=== PATIENT | female | born 1935 | race Caucasian/White ===

== ENCOUNTER 2016-11-03 11:45 | Inpatient (IN) | payer OTHER ==
[~2016-11-03] VITALS: Ht 162.6 cm; Wt 79.5 kg
[2016-11-03 12:29] LABS: ABSOLUTE BASOPHIL COUNT 0 /CUMM (0.0-0.2); ABSOLUTE EOSINOPHIL COUNT 0.2 /CUMM (0.0-0.7); ABSOLUTE LYMPH COUNT 1.9 /CUMM (1.2-3.4); ABSOLUTE MONOCYTE COUNT 0.5 /CUMM (0.10-0.60); BASOPHIL % 0.3 % (0.0-2.0); EOSINOPHIL % 2.2 % (0-5); GRANULOCYTE % 65.4 % (42.2-75.2); HEMATOCRIT 34.9 % (37-47); MEAN CORPUSCULAR HGB CONC 34.1 G/DL (33.0-37.0); MEAN CORPUSCULAR VOLUME 93.8 FL (81.0-99.0); MEAN PLATELET VOLUME 7.1 FL (7.4-10.4); PLATELET COUNT 231 /CUMM (130-400); RBC DISTRIBUTION WIDTH 12.5 % (11.5-14.5); RED BLOOD CELL CT 3.72 /CUMM (4.20-5.40); WHITE BLOOD CELL COUNT 7.7 /CUMM (4.8-10.8)
--- NOTE | 2016-11-03 13:15 | ED NEURO DEFICIT/STROKE ---
History of Present Illness General Chief Complaint: Neuro Symptoms/ Deficit Stated Complaint: LFT SIDED WEAKNESS SINCE YESTERDAY MORNING/FALL Source: patient Exam Limitations: no limitations Vital Signs & Intake/Output Vital Signs & Intake/Output ED Intake and Output 11/06 0000 11/05 1200 Intake Total 840 Output Total 425 Balance 415 Intake, IV 600 Intake, Oral 240 Output, Urine 425 Allergies Coded Allergies: No Known Allergies (11/03/16) Reconcile Medications Aspirin (Ecotrin*) 81 MG TABLET.DR 1 TAB PO DAILY CVA Atenolol/Chlorthalidone (Atenolol-Chlorthalidone 100-25) 100 MG-25 MG TABLET 1 TAB PO DAILY HEART (Reported) Atorvastatin Calcium 80 MG TABLET 1 TAB PO DAILY HY[PERLIPIDEMIA Clopidogrel Bisulfate (Plavix) 75 MG TABLET 1 TAB PO DAILY CVA Furosemide 40 MG TABLET 1 TAB PO DAILY WATER RETENTION (Reported) Glipizide (Glipizide ER) 2.5 MG TAB.ER.24 1 TAB PO DAILY DIABETES (Reported) Ropinirole HCl 1 MG TABLET 1 TAB PO BID RESTLESS LEGS (Reported) Triage Note: PT TO ED WITH LT SIDED WEAKNESS. STATES SHE STARTED TO TO GET THE WEAKNESS IN THE MORNING. LATER IN THE DAY SHE WAS SITTING IN A CHAIR GOT UP AND FELT DIZZY AND FELL TO THE GROUND. DENIES ANY HEAD STRIKE OR LOC. STATES THIS MORNING STARTING TO FEEL WEAKNESS TO HER RIGHT HAND. DENIES ANY LUIS. DENIES ANY CP/SOB. Triage Nurses Notes Reviewed? yes Onset: Abrupt Duration: hour(s):, constant, continues in ED HPI: Patient presents for evaluation of a possible stroke. She states that beginning yesterday she began having trouble typing and experienced clumsiness and weakness of the left hand. She states she also fell yesterday at about 12 noon for an unclear reason. She was evaluated by her primary care doctor today and was sent to the emergency department for evaluation of a possible stroke. I obtained additional information from Katelynn Amaya MD prior to this patient's arrival and he felt the patient was showing left upper extremity weakness on exam. Patient otherwise denies associated palpitations, acute visual changes, or slurred speech. There is a question whether or not she has showed an expressive aphasia, sometimes using the wrong word. Past History Travel History Traveled to [place] past 21 day No Medical History Any Pertinent Medical History? see below for history Cardiovascular: hypertension Endocrine: diabetes Surgical History Surgical History: non-contributory Psychosocial History What is your primary language Slovak Tobacco Use: Never used Family History Hx Contributory? No Review of Systems Review of Systems Constitutional: Reports: no symptoms. EENTM: Reports: no symptoms. Respiratory: Reports: no symptoms. Cardiovascular: Reports: no symptoms. GI: Reports: no symptoms. Genitourinary: Reports: no symptoms. Musculoskeletal: Reports: no symptoms. Skin: Reports: no symptoms. Neurological/Psychological: Reports: see HPI. Hematologic/Endocrine: Reports: no symptoms. Immunologic/Allergic: Reports: no symptoms. All Other Systems: Reviewed and Negative Physical Exam Physical Exam General Appearance: SEE BELOW Cranial Nerves: SEE BELOW Comments: Gen.: Well-nourished, well-developed, no acute respiratory distress. Head: Normocephalic, atraumatic. Eyes: Normal inspection bilaterally Ears: Normal inspection bilaterally Nose: Normal inspection Throat/mouth : Moist mucosa Neck: Supple, full range of motion, no goiter Heart: Regular rate and rhythm, no murmurs rubs or gallops Lungs: Clear to auscultation bilaterally with normal air entry Chest: Nontender Back: Normal range of motion Abdomen: Soft, nontender, nondistended, normal bowel sounds Extremities: Normal range of motion grossly, equal radial pulses, no cyanosis clubbing or edema, normal muscle strength to upper and lower extremities, dysmetria of the left upper extremity with finger to nose testing, difficulty with rapid alternating movements of the left hand. Plantar reflexes negative bilaterally. Neurologic: Cranial nerves 2 through 12, speech is clear, no apparent expressive aphasia Skin: warm and dry Psychiatric: Calm, cooperative, no apparent delusions or hallucinations Core Measures CVA/TIA Diagnosis: Yes Severe Sepsis Present: No Septic Shock Present: No Progress Differential Diagnosis: stroke, tia Plan of Care: Orders Procedure Date/time Status Admit to inpatient 11/03 1546 Active Add-on Test (ER Only) 11/03 1315 Active PROTHROMBIN TIME 11/03 1218 Complete TROPONIN LEVEL 11/03 1208 Complete COMPREHENSIVE METABOLIC PANEL 11/03 1208 Complete CBC WITHOUT DIFFERENTIAL 11/03 1208 Complete EKG 11/03 1152 Active Laboratory Tests 11/03/16 1218: Anion Gap 12, Estimated GFR 27 L, BUN/Creatinine Ratio 24.4, Glucose 116 H, Calcium 9.9, Total Bilirubin 0.6, AST 22, ALT 32, Alkaline Phosphatase 57, Troponin I < 0.01, Total Protein 6.9, Albumin 4.6, Globulin 2.3, Albumin/ Globulin Ratio 2.0, PT 10.1, INR 0.96, CBC w Diff NO MAN DIFF REQ, RBC 3.72 L, MCV 93.8, MCH 32.0 H, RDW 12.5, MPV 7.1 L, Gran % 65.4, Lymphocytes % 25.2, Monocytes % 6.9, Eosinophils % 2.2, Basophils % 0.3, Absolute Granulocytes 5.0, Absolute Lymphocytes 1.9, Absolute Monocytes 0.5, Absolute Eosinophils 0.2, Absolute Basophils 0, PUBS MCHC 34.1 Initial ED EKG: NSR, no ST T wave changes Comments: 11/03/2016 3:15:15 PM per neuro radiologist, Dr. Molina, multiple acute infarcts left mca and watershed. 11/03/2016 4:25:11 PM the patient has swallowed a bedside swallowing test and was able to swallow water and an aspirin without coughing or other complication. MOD notified. Departure Departure Disposition: STILL A PATIENT Condition: Stable Clinical Impression Primary Impression: CVA (cerebral vascular accident) Qualifiers: CVA mechanism: unspecified Qualified Code: I63.9 - Cerebral infarction, unspecified Referrals: MIKAEL COLMENARES,KATELYNN Mcknight (PCP/Family) Departure Forms: Customer Survey General Discharge Information Prescriptions: Current Visit Scripts Aspirin (Ecotrin*) 1 TAB PO DAILY #30 TAB Atorvastatin Calcium 1 TAB PO DAILY #30 TAB Clopidogrel Bisulfate (Plavix) 1 TAB PO DAILY #30 TAB Admission Note Spoke With: VERO LAGUNA MD Documentation of Exam: Documentation of any treatments & extenuating circumstances including Concerns Regarding Discharge (functional status, medication knowledge or non-compliance, living conditions, etc.) that warrant an admission rather than observation: Patient presents with history and exam findings consistent with a CVA. Patient has multiple acute CVAs on MRI scan. I feel the patient now requires hospitalization for an expedient evaluation of reversible causes of her CVA including carotid disease and cardioembolic phenomenon. It addition patient should be evaluated by neurology and medications adjusted. Physical therapy should also be considered given the stability of the left upper extremity. I feel the patient will require a multiple day hospitalization.
[2016-11-03 13:32] LABS: PT 10.1 SEC (9.4-12.5)
--- NOTE | 2016-11-03 15:20 | MRI REPORT ---
EXAMINATION: MR BRAIN WITHOUT CONTRAST CLINICAL INFORMATION: Left upper extremities weakness. Stroke workup. COMPARISON: None TECHNIQUE: MRI of the brain without contrast was obtained using routine sequences. FINDINGS: There are multifocal areas of restricted diffusion following a border zone distribution primarily in the MCA vascular territory at the treadwell-white matter junction in the right frontoparietal lobes extending from the vertex inferiorly to the mid to lower convexity. No mass effect or midline shift is seen. There is no hemorrhagic conversion of infarcts. The ventricles are normal in size. No extra-axial fluid collections are seen. Mild chronic white matter microangiopathic changes are noted. The brainstem and cerebellum appear normal. The major intracranial flow voids at the level of the [place] are preserved. The craniovertebral junction and marrow signal are normal. Mild spondylitic changes are noted with mild anterior subluxations at C3-C4 and C4-C5. IMPRESSION: Multifocal acute infarcts primarily in the right MCA vascular territory and also following a watershed distribution in the frontoparietal lobes. No hemorrhagic conversion, significant mass effect or midline shift. Imaging findings discussed with Dr. Alas at 3:15 PM on 11/03/2016.
[2016-11-03] MEDS ORDERED: ROPINIROLE HCL1 MG PO (15:31)
[2016-11-03] MEDS ORDERED: FUROSEMIDE40 M1 PO (15:32)
[2016-11-03] MEDS ORDERED: LISINOPRIL10 M1 PO (15:32)
[2016-11-03] MEDS ORDERED: ATENOLOL-CHLOR1 EACH PO (15:33)
[2016-11-03] MEDS ORDERED: GLIPIZIDE ER2.5 M1 PO (15:33)
[2016-11-03] MEDS ORDERED: ATORVASTATIN CA20 M1 PO (15:33)
[2016-11-03] MEDS ORDERED: PREDNISOLONE ACE5 ML OPH (15:33)
--- NOTE | 2016-11-03 16:14 | History & Physical ---
VICK PALOMARES MD 11/03/16 1613: General Information and HPI MD Statement: I have seen and personally examined VISHNU CALDERÓN and documented this H&P. The patient is a 81 year old F who presented with a patient stated chief complaint of [clumsiness, left arm weakness]. Source of Information: patient, family Exam Limitations: no limitations History of Present Illness: A pleasant 81 YO F with a PMH hypertension, hyperlipidemia, diabetes, CKD stage 4 and restless leg syndrome who presents with left hand clumsiness and weakness and mild confusion x 1 day duration. Patient says she woke up yesterday morning feeling unwell and she noticed she was left arm was weaker than usual, she was unable to turn the faucet in the kitchen and when she went to use her computer she fumbled for the keys and could not seem to be able to be able to type in her password which is something she usually does by rote memory. She then fell when she tried to stand up from a chair but denies losing consciousness or hitting her head when she fell. SHe has no hx of prior stroke, she does not take a daily aspirin and does not have a hx of heart disease. She denies syncope, blurry vision, abnormal smells, double vision, headache, palpitation or chest pain. She denies lower extremity weakness, facial droop or dysphagia but her says her speech was slurred though she did not notice this herself. She did not seek medical attention but continued through her day as usual and went to bed with the symptoms. She woke up this morning not feeling any better, so she decided to go to her PCP's office who examined her and sent her over to the ED to be evaluated for a possible stroke. She is independent of her ADLs at baseline and is active. She recently had cataract surgey in her Rt eye. Allergies/Medications Allergies: Coded Allergies: No Known Allergies (11/03/16) Home Med list Atenolol/Chlorthalidone (Atenolol-Chlorthalidone 100-25) 100 MG-25 MG TABLET 1 TAB PO DAILY HEART (Reported) Atorvastatin Calcium 20 MG TABLET 1 TAB PO DAILY CHOLESTEROL (Reported) Furosemide 40 MG TABLET 1 TAB PO DAILY WATER RETENTION (Reported) Glipizide (Glipizide ER) 2.5 MG TAB.ER.24 1 TAB PO DAILY DIABETES (Reported) Lisinopril 10 MG TABLET 1 TAB PO DAILY HEART (Reported) Ropinirole HCl 1 MG TABLET 1 TAB PO BID RESTLESS LEGS (Reported) Compliance With Home Meds: GOOD Past History Travel History Traveled to [place] past 21 day No Medical History Neurological: NONE EENT: NONE Cardiovascular: hypertension Respiratory: NONE Gastrointestinal: NONE Hepatic: NONE Renal: NONE Musculoskeletal: NONE Psychiatric: NONE Endocrine: diabetes Surgical History Surgical History: non-contributory Past Family/Social History Family History Relations & Conditions if any SON FH: hypertension MOTHER FH: Alzheimers disease FATHER FH: diabetes mellitus SISTER FH: Alzheimers disease Psychosocial History Where do you live? Home Who Do You Live With? spouse Primary Language: Mauritanian Smoking Status: Never Smoked ETOH Use: denies use Illicit Drug Use: denies illicit drug use Functional Ability ADLs Independent: dressing, eating, toileting, bathing. Ambulation: independent IADLs Independent: shopping, housework, finances, food prep, telephone, transportation , medication admin. Review of Systems Review of Systems Constitutional: Reports: no symptoms. Cardiovascular: Reports: see HPI. Denies: chest pain, edema, palpitations. Respiratory: Denies: cough, short of breath. GI: Denies: abdominal pain, nausea, vomiting. Genitourinary: Denies: pain. Skin: Denies: jaundice, lesions. Exam & Diagnostic Data Last 24 Hrs of Vital Signs/I&O Vital Signs Date Time Temp Pulse Resp B/P B/P Pulse O2 O2 Flow FiO2 Mean Ox Delivery Rate 11/03 1649 97.8 54 18 115/56 99 Room Air 11/03 1449 96.6 51 15 126/56 99 Room Air Room Air 11/03 1246 Room Air Room Air 11/03 1151 97.0 96 16 124/68 98 Room Air Intake & Output 11/03 1600 11/03 0800 11/03 0000 Intake Total 0 Output Total 400 Balance -400 Intake, Oral 0 Output, Urine 400 Patient 175 lb Weight Weight Reported by Patient Measurement Method Physical Exam General Appearance Alert, Oriented X3, Cooperative, No Acute Distress Skin No Significant Lesion HEENT PERRLA, EOMI, Mucous Membr. moist/pink, no appreciable facial droop, slurring of speech or tongue deviation Neck Supple, No JVD, +2 Carotid Pulse wo Bruit Cardiovascular Regular Rate, Normal S1, Normal S2, No Murmurs Lungs Clear to Auscultation, Normal Air Movement Abdomen Normal Bowel Sounds, Soft, No Tenderness Neurological Strength in RUE-5/5, LUE-4/5, strong registered pharmacist bilaterally, mild drift of LUE Strength in RLE-5/5, RLE-5/5, intact sensation Extremities No Edema, Normal Pulses Vascular Normal Pulses Last 24 Hrs of Labs/Issa: Laboratory Tests 11/03/16 1218: Anion Gap 12, Estimated GFR 27 L, BUN/Creatinine Ratio 24.4, Glucose 116 H, Calcium 9.9, Total Bilirubin 0.6, AST 22, ALT 32, Alkaline Phosphatase 57, Troponin I < 0.01, Total Protein 6.9, Albumin 4.6, Globulin 2.3, Albumin/ Globulin Ratio 2.0, PT 10.1, INR 0.96, CBC w Diff NO MAN DIFF REQ, RBC 3.72 L, MCV 93.8, MCH 32.0 H, RDW 12.5, MPV 7.1 L, Gran % 65.4, Lymphocytes % 25.2, Monocytes % 6.9, Eosinophils % 2.2, Basophils % 0.3, Absolute Granulocytes 5.0, Absolute Lymphocytes 1.9, Absolute Monocytes 0.5, Absolute Eosinophils 0.2, Absolute Basophils 0, PUBS MCHC 34.1 Diagnostic Data EKG Results NSR, rate 56 Other Results Head MRI: Multifocal acute infarcts primarily in the right MCA vascular territory and also following a watershed distribution in the frontoparietal lobes. No hemorrhagic conversion, significant mass effect or midline shift. Assessment/Plan Assessment: A pleasant 81 YO F with a PMH of hypertension, hyperlipidemia, diabetes, CKD stage 4 and restless leg syndrome who presents with left hand clumsiness and weakness and mild confusion x 1 day duration. She is out of window for tPA. -Multifocal acute infarcts primarily in the right MCA vascular territory and also following a watershed distribution in the frontoparietal lobes. -EKG-NSR; rate 56 -Patient passed a bedside swallow eval Assessment 1. Acute right sided thromboembolic stroke 2. HTN 3. T2DM 4. HLD 5. CKD stage 4-Cr seems to be at baseline Plan Admit to tele for monitoring to r/o arrythmias PO aspirin 325mg stat; then 81mg daily thereafter Atorvastatin 80mg daily Resume her home dose of lisinopril 20mg daily Hold Atenolol; HR in the 50s Check Hb A1c Check lipid profile Resume Ropinirole, lasix Neuro Consult-spoke with Dr. Magaña over the phone and he wants and ECHO and carotid US ordered; he will see patient in am. CBC/BEP in am Diabetic diet FC SC heparin for DVT PPX As Ranked By This Provider Problem List: 1. CVA (cerebral vascular accident) Qualifiers CVA mechanism: unspecified Qualified Code: I63.9 - Cerebral infarction, unspecified Core Measures/Miscellaneous Acute Coronary Syndrome ACS Diagnosis: No Cerebrovascular Accident CVA/TIA Diagnosis: Yes NIH Stroke Scale: Total 1 Date Last Known Well: 11/02/16 Time Last Known Well: 0800 Neurological S/S of CVA: Left Hemiparesis, Slurred Speech Symptom Start Date: 11/02/16 Symptom Start Time: 0800 Reason tPA not ordered Medical Contraindication Bedside Swallow Eval Done: Yes Result of Evaluation: Pass Days in Hospital: 0 Antithrombotic: Yes AFIB: No Aflutter: No Anticoagulant: Yes Evidence of Atherosclerosis: Yes LDL Assessed Within 24 Hours: Yes Currently on Statin: Yes Rehab Needs Assessed: Medical Eval for Rehab PT Consult Ordered: Yes Congestive Heart Failure CHF Diagnosis: No VTE (View Protocol) VTE Risk Factors: Acute medical illness, Age > 40 [facility] d/t: No contraindications No VTE Pharm Prophylaxis d/t: No contraindications VTE Diagnosis: No VTE Type: NONE VTE Confirmed by (Test): NONE Sepsis (View Protocol) Severe Sepsis Present: No Septic Shock Septic Shock Present: No Miscellaneous Documentation Attending Case Discussed With: VERO LAGUNA MD Primary Care Physician: KATELYNN YOUSSEF MD Patient sees these Specialists none Level of Patient Care: Telemetry Consults Needed: Consulting Specialty: Neurology Resident Review Statement Resident Statement: examined this patient Other Findings: See HPI VERO LAGUNA 11/03/16 1613: Attending Review Statement Attending Statement Attending MD Statement: examined this patient, discuss w/resident/PA/JAIL GUARD, agreed w/resident/PA/JAIL GUARD, discussed with family, reviewed EMR data (avail), discussed with nursing, discussed with case mgmt, reviewed images, amended to note Attending Assessment/Plan: 81 o/f with PMH of hypertension, DM, restless legs syndromw comes with Left sided weakness since yesterday morning out of tpa window, also had fall. ASSESSMENT 1. left sided weakness 2. Acute stroke with multiple infracts 3. hypertension controlled 4. DM 5. restless leg syndrome PLAN admit to telemetry monitoring Neuro consult, NPO , asa , statin, consult speech/swallow, pt/ot, hba1c, lipid profile. RISS and titrate insulin as needed, resume home meds gi/dvt prophyalxis full code. plan of care d/wed patient bedside in ER. tts>37 min.
[2016-11-03 22:22] VITALS: BP 130/60
--- NOTE | 2016-11-04 07:11 | PN- Housestaff ---
See Addendum Subjective Follow-up For: 1. Acute right sided thromboembolic stroke 2. HTN 3. T2DM 4. HLD 5. CKD stage 4-Cr seems to be at baseline Complaints: no complaints Tele-Events Since Last Visit: Normal sinus rhythm/sinus bradycardia, 50 to 60s; low 49 Subjective: Patient feels a lot better compared to yesterday, she feels her strength in her left hand is returning. She denies dysphagia, blurry vision, slurred speech, or weakness of any other part of her body. Review of Systems Constitutional: Reports: no symptoms. Objective Last 24 Hrs of Vital Signs/I&O Vital Signs Date Time Temp Pulse Resp B/P B/P Pulse O2 O2 Flow FiO2 Mean Ox Delivery Rate 11/04 0853 97.7 51 16 103/42 96 Room Air 11/03 2222 98.2 58 20 130/60 97 Room Air 11/03 1851 97.2 60 18 124/58 97 Room Air 11/03 1649 97.8 54 18 115/56 99 Room Air 11/03 1449 96.6 51 15 126/56 99 Room Air Room Air 11/03 1246 Room Air Room Air 11/03 1151 97.0 96 16 124/68 98 Room Air Intake & Output 11/04 1600 11/04 0800 11/04 0000 Intake Total 880 Output Total 425 Balance 455 Intake, IV 400 Intake, Oral 480 Output, Urine 425 Patient 175 lb Weight Weight Reported by Patient Measurement Method Physical Exam General Appearance: Alert, Oriented X3, Cooperative, No Acute Distress HEENT: PERRLA, EOMI, Mucous Membr. moist/pink Cardiovascular: Regular Rate, Normal S1, Normal S2 Lungs: Clear to Auscultation, Normal Air Movement Abdomen: Normal Bowel Sounds, Soft, No Tenderness Neurological: Strength 5/5 on LUE. [employer] in left slightly weaker than Rt, no facial droop, or slurred speech Extremities: No Edema, Normal Pulses Current Medications: Current Medications Sig/Kourtney Start time Last Medication Dose Route Stop Time Status Admin Acetaminophen 650 MG Q6P PRN 11/03 1730 AC PO Aspirin 81 MG DAILY 11/04 1000 AC PO Aspirin 81 MG Q1 NEEDED PRN 11/03 2200 DC 11/03 PO 2257 Aspirin 243 MG ONCE ONE 11/03 1745 CAN PO 11/03 1746 Aspirin 0 .STK-MED ONE 11/03 1552 DC PO Aspirin 81 MG ONCE ONE 11/03 1530 [place] 11/03 PO 11/03 1531 1551 Atorvastatin Calcium 80 MG 1700 11/03 1745 11/03 PO 2246 Dextrose/Sodium 1,000 ML .Q20H 11/03 1730 [place] 11/03 Chloride IV 1852 Furosemide 40 MG DAILY 11/04 1000 AC PO Insulin Aspart 0 TIDAC 11/04 1200 AC SC Insulin Human Regular 0 Q6 11/03 1800 DC SC Lisinopril 10 MG DAILY 11/04 1000 AC PO Melatonin 5 MG AT BEDTIME 11/04 2200 AC PO Ropinirole HCl 1 MG BID 11/03 2200 AC 11/03 PO 2246 Last 24 Hrs of Lab/Issa Results Last 24 Hrs of Labs/Mics: Laboratory Tests 11/04/16 0600: Anion Gap 13, Estimated GFR 23 L, BUN/Creatinine Ratio 23.8, CBC w Diff NO MAN DIFF REQ, RBC 3.68 L, MCV 94.7, MCH 32.1 H, RDW 12.8, MPV 7.7, Gran % 59.3, Lymphocytes % 30.2, Monocytes % 7.8, Eosinophils % 2.5, Basophils % 0.2, Absolute Granulocytes 4.6, Absolute Lymphocytes 2.4, Absolute Monocytes 0.6, Absolute Eosinophils 0.2, Absolute Basophils 0, PUBS MCHC 33.9 11/03/161999: Urine Color YEL, Urine Clarity CLEAR, Urine pH 6.0, Ur Specific [place] 1.010, Urine Protein NEG, Urine Ketones NEG, Urine Nitrite NEG, Urine Bilirubin NEG, Urine Urobilinogen 0.2, Ur Leukocyte Esterase NEG, Ur Microscopic EXAM NOT REQUIRED, Urine Hemoglobin NEG, Urine Glucose NEG 11/03/16 1811: Hemoglobin A1c Pending, Triglycerides 231 H, Cholesterol 170, LDL Cholesterol, Calc 76, HDL Cholesterol 48, Cholesterol/HDL Ratio 4 11/03/16 1218: Anion Gap 12, Estimated GFR 27 L, BUN/Creatinine Ratio 24.4, Glucose 116 H, Calcium 9.9, Total Bilirubin 0.6, AST 22, ALT 32, Alkaline Phosphatase 57, Troponin I < 0.01, Total Protein 6.9, Albumin 4.6, Globulin 2.3, Albumin/ Globulin Ratio 2.0, PT 10.1, INR 0.96, CBC w Diff NO MAN DIFF REQ, RBC 3.72 L, MCV 93.8, MCH 32.0 H, RDW 12.5, MPV 7.1 L, Gran % 65.4, Lymphocytes % 25.2, Monocytes % 6.9, Eosinophils % 2.2, Basophils % 0.3, Absolute Granulocytes 5.0, Absolute Lymphocytes 1.9, Absolute Monocytes 0.5, Absolute Eosinophils 0.2, Absolute Basophils 0, PUBS MCHC 34.1 Lines/Diet/Fluids Lines: peripheral lines Assessment/Plan Assessment: A pleasant 81 YO F with a PMH of hypertension, hyperlipidemia, diabetes, CKD stage 4 and restless leg syndrome who presents with left hand clumsiness and weakness and mild confusion x 1 day duration. She is out of window for tPA. -Multifocal acute infarcts primarily in the right MCA vascular territory and also following a watershed distribution in the frontoparietal lobes. -EKG-NSR; rate 56 -Patient passed a bedside swallow eval Assessment 1. Acute right sided thromboembolic stroke 2. HTN 3. T2DM 4. HLD 5. AMADEO on CKD stage 4- Plan Creatinine bumped up to 2.1 today; will give IV fluids and recheck BEP in a.m. Continue 81mg daily Continue Atorvastatin 80mg daily Continue lisinopril 20mg daily Hold Atenolol; HR in the 50s Follow Hb A1c, lipid profile Continue Ropinirole, lasix Follow-up Neuro note Follow-up ECHO and carotid US CBC/BEP in am Diabetic diet FC SC heparin for DVT PPX Problem List: 1. CVA (cerebral vascular accident) Pain Ratin Pain Location: n/a Pain Goal: n/a Pain Plan: n/a Tomorrow's Labs & Rationales: BEP for AMADEO on CKD Consulting Request: Consulting Specialty: Neurology
[2016-11-04 08:25] LABS: ABSOLUTE BASOPHIL COUNT 0 /CUMM (0.0-0.2); ABSOLUTE EOSINOPHIL COUNT 0.2 /CUMM (0.0-0.7); ABSOLUTE GRANULOCYTE CT 4.6 /CUMM (1.4-6.5); ABSOLUTE LYMPH COUNT 2.4 /CUMM (1.2-3.4); ABSOLUTE MONOCYTE COUNT 0.6 /CUMM (0.10-0.60); BASOPHIL % 0.2 % (0.0-2.0); EOSINOPHIL % 2.5 % (0-5); GRANULOCYTE % 59.3 % (42.2-75.2); HEMATOCRIT 34.9 % (37-47); MEAN CORPUSCULAR HGB 32.1 PG (27.0-31.0); MEAN CORPUSCULAR HGB CONC 33.9 G/DL (33.0-37.0); MEAN CORPUSCULAR VOLUME 94.7 FL (81.0-99.0); MEAN PLATELET VOLUME 7.7 FL (7.4-10.4); PLATELET COUNT 199 /CUMM (130-400); RBC DISTRIBUTION WIDTH 12.8 % (11.5-14.5); RED BLOOD CELL CT 3.68 /CUMM (4.20-5.40); WHITE BLOOD CELL COUNT 7.8 /CUMM (4.8-10.8)
[2016-11-04 08:53] VITALS: BP 103/42
--- NOTE | 2016-11-04 09:38 | ULTRASOUND REPORT ---
EXAMINATION: US DUPLEX CAROTID AND VERTEBRAL CLINICAL INFORMATION: Slurred speech and left-sided weakness. COMPARISON: None TECHNIQUE: Real-time ultrasound and Doppler techniques (integrating B-mode 2D vascular images, Doppler spectral analysis and color flow Doppler imaging) were utilized to interrogate the extracranial carotid and vertebral arteries bilaterally. The degree of stenosis determined by criteria similar to NASCET. FINDINGS: RIGHT VESSELS - There is antegrade flow within the carotid and vertebral arteries. Atherosclerotic plaque of the distal common carotid artery, carotid bulb and bifurcation produces irregular luminal narrowing. There is spectral broadening of the ICA waveform. Doppler derived peak systolic velocity measurements (cm/sec) were as follows: Distal CCA: 56 ICA: 184 (with end diastolic of 73) ECA: 97 Vertebral: 101 ICA/CCA ratio is 3.3 LEFT VESSELS - There is antegrade flow within the carotid and vertebral arteries. On the grayscale images, the calcified atherosclerotic plaque of the carotid bulb and bifurcation appears to produce high-grade stenosis of the proximal ICA. There is spectral broadening of the ICA waveform. Doppler derived peak systolic velocity measurements (cm/sec) were as follows: Distal CCA: 45 ICA: 445 (with end diastolic of 174) ECA: 116 Vertebral: 88 ICA/CCA ratio is 9.9 IMPRESSION: Atherosclerotic disease with elevated systolic velocities of the vertebral and carotid arteries. The grayscale and Doppler imaging findings suggest presence of stenosis in the range of 50-69% of the right ICA and stenosis of > 70% of the left ICA.
[2016-11-04 15:49] VITALS: BP 118/60
[2016-11-04 16:09] VITALS: BP 100/50
[2016-11-04 18:20] VITALS: BP 110/54
--- NOTE | 2016-11-04 18:27 | Cons- Cardiology ---
General Information and HPI Consulting Request Date of Consult: 11/04/16 Requested By: VERO LAGUNA MD History of Present Illness: Trinity is an 81 year old female with history of hypertension, dyslipidemia, diabetes and renal insufficiency. About 5 days ago this patient noted a non- descript feeling of ill-being. On , she discovered a lack of coordination while trying to turn a knob. She also was not able to hold herself up and had a fall without injury. In consideration of the above, this patient presented to her primary care physician the following day who sent her to the ER for further evaluation. At this time the patient feels much improved with almost no residual deficit. She denies any associated palpitations during this event or at any other time. There is no chest discomfort or lightheadedness. The patient does have exertional shortness of breath that is not appreciably different than her baseline. Workup included an MRI which has disclose multifocal acute infarcts primarily in the right MCA vascular territory with a watershed distribution in the frontoparietal lobes. There is no evidence of hemorrhagic conversion, significant mass effect or midline shift. A carotid ultrasound shows less than 70% stenosis on the right and a greater than 70% stenosis in the left internal carotid artery. Allergies/Medications Allergies: Coded Allergies: No Known Allergies (11/03/16) Home Med List: Atenolol/Chlorthalidone (Atenolol-Chlorthalidone 100-25) 100 MG-25 MG TABLET 1 TAB PO DAILY HEART (Reported) Atorvastatin Calcium 20 MG TABLET 1 TAB PO DAILY CHOLESTEROL (Reported) Furosemide 40 MG TABLET 1 TAB PO DAILY WATER RETENTION (Reported) Glipizide (Glipizide ER) 2.5 MG TAB.ER.24 1 TAB PO DAILY DIABETES (Reported) Lisinopril 10 MG TABLET 1 TAB PO DAILY HEART (Reported) Ropinirole HCl 1 MG TABLET 1 TAB PO BID RESTLESS LEGS (Reported) Review of Systems Review of Systems: A twelve point review of systems is unremarkable. Past History Travel History Traveled to [place] past 21 day No Medical History Blood Transfusion Hx: No Neurological: NONE EENT: NONE Cardiovascular: hypertension Respiratory: NONE Gastrointestinal: NONE Hepatic: NONE Renal: NONE Musculoskeletal: NONE Psychiatric: NONE Endocrine: diabetes Surgical History Surgical History: non-contributory Family History Relations & Conditions If Any: SON FH: hypertension MOTHER FH: Alzheimers disease FATHER FH: diabetes mellitus SISTER FH: Alzheimers disease Psychosocial History Where Do You Live? Home Who Do You Live With? spouse Services at Home: None Primary Language: Scottish Smoking Status: Never Smoked ETOH Use: denies use Illicit Drug Use: denies illicit drug use Functional Ability ADLs Independent: dressing, eating, toileting, bathing. Ambulation: independent IADLs Independent: shopping, housework, finances, food prep, telephone, transportation , medication admin. Exam & Diagnostic Data Vital Signs and I&O Vital Signs Date Time Temp Pulse Resp B/P B/P Pulse O2 O2 Flow FiO2 Mean Ox Delivery Rate 11/04 1820 64 110/54 11/04 1609 65 100/50 11/04 1549 98.1 64 20 118/60 95 11/04 0940 54 96/60 11/04 0853 97.7 51 16 103/42 96 Room Air 11/03 2222 98.2 58 20 130/60 97 Room Air 11/03 1851 97.2 60 18 124/58 97 Room Air Intake & Output 11/04 1600 11/04 0800 11/04 0000 11/03 1600 11/03 0800 11/03 0000 Intake Total 1175 880 0 Output Total 425 400 Balance 1175 455 -400 Intake, IV 375 400 Intake, Oral 800 480 0 Output, Urine 425 400 Patient 175 lb 175 lb Weight Weight Reported by Patient Reported by Patient Measurement Method Physical Exam: General: WD/ obese female in NAD; alert and oriented with some slowness to respond HEENT: NC/ AT, PERRL, EOMI Neck: no JVD, left carotic bruit, no bruit on the right Heart: RRR without murmur Lungs: clear bilaterally Abdomen: soft, obese, NT, +ve bowel sounds Extremities: no edema Neuro: muscle strength 5/5 throughout with impaired finger to nose on left Assessment/Plan Assessment/Plan * This patient has significant carotid disease bilaterally 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 She will benefit from a carotid endarterectomy. For now it is reasonable to begin a statin and aspirin. * Patient's blood pressure is well controlled on her current drug regimen. I would not restart her ACEI at this time to avoid hypotension in the setting of acute stroke. * Obtain an echocardiogram and monitor on telemetry. Consult Acknowledgment - Thank you for your consult request.
--- NOTE | 2016-11-04 20:01 | Cons- Neurology ---
See Addendum General Information and HPI Consulting Request Date of Consult: 11/04/16 Requested By: VERO LAGUNA MD Reason for Consult: Stroke Source of Information: patient, family, staff Exam Limitations: no limitations History of Present Illness: This is a very pleasant 81 year old woman with a history of Diabetes and hypertension who presented to the hospital after developing left arm weakness. She was not feeling herself and decided to come in. She denies any other focal symptoms. On MRI brain she was found to have multiple punctate diffusion positive lesions throughout the right MCA territory. Allergies/Medications Allergies: Coded Allergies: No Known Allergies (11/03/16) Home Med List: Atenolol/Chlorthalidone (Atenolol-Chlorthalidone 100-25) 100 MG-25 MG TABLET 1 TAB PO DAILY HEART (Reported) Atorvastatin Calcium 20 MG TABLET 1 TAB PO DAILY CHOLESTEROL (Reported) Furosemide 40 MG TABLET 1 TAB PO DAILY WATER RETENTION (Reported) Glipizide (Glipizide ER) 2.5 MG TAB.ER.24 1 TAB PO DAILY DIABETES (Reported) Lisinopril 10 MG TABLET 1 TAB PO DAILY HEART (Reported) Ropinirole HCl 1 MG TABLET 1 TAB PO BID RESTLESS LEGS (Reported) Review of Systems Review of Systems: As per HPI. Past History Travel History Traveled to [place] past 21 day No Medical History Blood Transfusion Hx: No Neurological: NONE EENT: NONE Cardiovascular: hypertension Respiratory: NONE Gastrointestinal: NONE Hepatic: NONE Renal: NONE Musculoskeletal: NONE Psychiatric: NONE Endocrine: diabetes Surgical History Surgical History: non-contributory Family History Relations & Conditions If Any: SON FH: hypertension MOTHER FH: Alzheimers disease FATHER FH: diabetes mellitus SISTER FH: Alzheimers disease Psychosocial History Where Do You Live? Home Who Do You Live With? spouse Services at Home: None Primary Language: Portuguese Smoking Status: Never Smoked ETOH Use: denies use Illicit Drug Use: denies illicit drug use Functional Ability ADLs Independent: dressing, eating, toileting, bathing. Ambulation: independent IADLs Independent: shopping, housework, finances, food prep, telephone, transportation , medication admin. Exam & Diagnostic Data Vital Signs and I&O Vital Signs Date Time Temp Pulse Resp B/P B/P Pulse O2 O2 Flow FiO2 Mean Ox Delivery Rate 11/04 1820 64 110/54 11/04 1609 65 100/50 11/04 1549 98.1 64 20 118/60 95 11/04 0940 54 96/60 11/04 0853 97.7 51 16 103/42 96 Room Air 11/03 2222 98.2 58 20 130/60 97 Room Air Intake & Output 11/04 1600 11/04 0800 11/04 0000 Intake Total 1175 880 Output Total 425 Balance 1175 455 Intake, IV 375 400 Intake, Oral 800 480 Output, Urine 425 Patient 175 lb Weight Weight Reported by Patient Measurement Method Physical Exam: Alert and oriented x 3. Pleasant and in no distress. Good attention and concentration. Fluent, comprehends without dysarthria. S1 and S2 normal. RRR. EOMI, CARLO, no nystagmus, face is symmetric, tongue is midline, uvula raises equally in the midline, V1-V3 sensation is normal, hearing normal. TPZ and SCM strong. VF - possible visual field cut on left but not complete. Strength is intact with mild left arm drift. Otherwise strength is 5/5 throughout distribution. Sensory testing is normal. Reflexes are symmetric. Downgoing toes. FNF normal. Romberg negative. Gait normal. Last 48 Hours of Lab Results: Laboratory Tests 11/04 11/03 0600 1999 Chemistry Sodium (137 - 145 mmol/L) 137 Potassium (3.5 - 5.1 mmol/L) 4.0 Chloride (98 - 107 mmol/L) 99 Carbon Dioxide (22 - 30 mmol/L) 26 Anion Gap (5 - 16) 13 BUN (7 - 17 mg/dL) 50 H Creatinine (0.5 - 1.0 mg/dL) 2.1 H Estimated GFR (>60 ml/min) 23 L BUN/Creatinine Ratio (7 - 25 %) 23.8 Hematology CBC w Diff NO MAN DIFF REQ WBC (4.8 - 10.8 /CUMM) 7.8 RBC (4.20 - 5.40 /CUMM) 3.68 L Hgb (12.0 - 16.0 G/DL) 11.8 L Hct (37 - 47 %) 34.9 L MCV (81.0 - 99.0 FL) 94.7 MCH (27.0 - 31.0 PG) 32.1 H RDW (11.5 - 14.5 %) 12.8 Plt Count (130 - 400 /CUMM) 199 MPV (7.4 - 10.4 FL) 7.7 Gran % (42.2 - 75.2 %) 59.3 Lymphocytes % (20.5 - 51.1 %) 30.2 Monocytes % (1.7 - 9.3 %) 7.8 Eosinophils % (0 - 5 %) 2.5 Basophils % (0.0 - 2.0 %) 0.2 Absolute Granulocytes (1.4 - 6.5 /CUMM) 4.6 Absolute Lymphocytes (1.2 - 3.4 /CUMM) 2.4 Absolute Monocytes (0.10 - 0.60 /CUMM) 0.6 Absolute Eosinophils (0.0 - 0.7 /CUMM) 0.2 Absolute Basophils (0.0 - 0.2 /CUMM) 0 PUBS MCHC (33.0 - 37.0 G/DL) 33.9 Urines Urine Color (YEL,AMB,STR) YEL Urine Clarity (CLEAR) CLEAR Urine pH (5.0 - 8.0) 6.0 Ur Specific [place] (1.001 - 1.035) 1.010 Urine Protein (NEG,<30 MG/DL) NEG Urine Ketones (NEG) NEG Urine Nitrite (NEG) NEG Urine Bilirubin (NEG) NEG Urine Urobilinogen (0.1 - 1.0 EU/dl) 0.2 Ur Leukocyte Esterase (NEG) NEG Ur Microscopic EXAM NOT REQUIRED Urine Hemoglobin (NEG) NEG Urine Glucose (N MG/DL) NEG 11/03 11/03 1811 1218 Chemistry Sodium (137 - 145 mmol/L) 137 Potassium (3.5 - 5.1 mmol/L) 3.9 Chloride (98 - 107 mmol/L) 97 L Carbon Dioxide (22 - 30 mmol/L) 28 Anion Gap (5 - 16) 12 BUN (7 - 17 mg/dL) 44 H Creatinine (0.5 - 1.0 mg/dL) 1.8 H Estimated GFR (>60 ml/min) 27 L BUN/Creatinine Ratio (7 - 25 %) 24.4 Glucose (65 - 99 mg/dL) 116 H Hemoglobin A1c (4.2 - 5.8 %) Pending Calcium (8.4 - 10.2 mg/dL) 9.9 Total Bilirubin (0.2 - 1.3 mg/dL) 0.6 AST (14 - 36 U/L) 22 ALT (9 - 52 U/L) 32 Alkaline Phosphatase (<127 U/L) 57 Troponin I (< 0.11 ng/ml) < 0.01 Total Protein (6.3 - 8.2 g/dL) 6.9 Albumin (3.5 - 5.0 g/dL) 4.6 Globulin (1.9 - 4.2 gm/dL) 2.3 Albumin/Globulin Ratio (1.1 - 2.2 %) 2.0 Triglycerides (<150 mg/dL) 231 H Cholesterol (<200 MG/DL) 170 LDL Cholesterol, Calc (65 - 129 mg/dL) 76 HDL Cholesterol (40 - 60 mg/dL) 48 Cholesterol/HDL Ratio (0.00 - 4.23 %) 4 Coagulation PT (9.4 - 12.5 SEC) 10.1 INR (0.90 - 1.19) 0.96 Hematology CBC w Diff NO MAN DIFF REQ WBC (4.8 - 10.8 /CUMM) 7.7 RBC (4.20 - 5.40 /CUMM) 3.72 L Hgb (12.0 - 16.0 G/DL) 11.9 L Hct (37 - 47 %) 34.9 L MCV (81.0 - 99.0 FL) 93.8 MCH (27.0 - 31.0 PG) 32.0 H RDW (11.5 - 14.5 %) 12.5 Plt Count (130 - 400 /CUMM) 231 MPV (7.4 - 10.4 FL) 7.1 L Gran % (42.2 - 75.2 %) 65.4 Lymphocytes % (20.5 - 51.1 %) 25.2 Monocytes % (1.7 - 9.3 %) 6.9 Eosinophils % (0 - 5 %) 2.2 Basophils % (0.0 - 2.0 %) 0.3 Absolute Granulocytes (1.4 - 6.5 /CUMM) 5.0 Absolute Lymphocytes (1.2 - 3.4 /CUMM) 1.9 Absolute Monocytes (0.10 - 0.60 /CUMM) 0.5 Absolute Eosinophils (0.0 - 0.7 /CUMM) 0.2 Absolute Basophils (0.0 - 0.2 /CUMM) 0 PUBS MCHC (33.0 - 37.0 G/DL) 34.1 Imaging/Other Studies: MRI brain = Multiple punctate diffusion positive lesions within the R MCA distribution. Carotid Duplex>> IMPRESSION: Atherosclerotic disease with elevated systolic velocities of the vertebral and carotid arteries. The grayscale and Doppler imaging findings suggest presence of stenosis in the range of 50-69% of the right ICA and stenosis of > 70% of the left ICA. Assessment/Plan Assessment: 81 year old with an acute embolic shower into the R MCA distribution. Causes by likelihood: 1) Arteriorembolic from R ICA plaqu or R proximal MCA plaque 2) Arterioembolic from aorta 3) Cardioembolic from occult Afib. Recommendations: 1) Cardiology consult - will kevin LINQ monitor as outpt to assess for Afib. 2) Plavix and Aspirin. C/w Lipitor 80mg and BP meds. 3) Can do PT as outpt. Consult Acknowledgment - Thank you for your consult request.
[2016-11-04 22:56] VITALS: BP 112/70
[2016-11-05 08:00] VITALS: BP 108/70
[2016-11-05 08:28] VITALS: BP 112/56
--- NOTE | 2016-11-05 09:06 | PN- Housestaff ---
TYRONE NEWMAN 11/05/16 0906: Subjective Follow-up For: 1. Acute right sided thromboembolic stroke 2. HTN 3. T2DM 4. HLD 5. CKD stage 4-Cr seems to be at baseline Tele-Events Since Last Visit: Sinus bradycardia heart rate in the range of 55-71 with no overnight events Subjective: Patient seen and examined in the morning. Slept well today denies any complaints strength in the left had is much better.She denies dysphagia, blurry vision, slurred speech, or weakness of any other part of her body. Review of Systems Constitutional: Denies: chills, diaphoresis, fever. EENTM: Denies: blurred vision, double vision, visual changes. Cardiovascular: Denies: chest pain, edema, orthopena. Respiratory: Denies: cough, hemoptysis, orthopnea. Gastrointestinal: Denies: abdominal pain, constipation, diarrhea. Genitourinary: Denies: discharge, dysuria, frequency. Musculoskeletal: Denies: back pain, gout, joint pain. Skin: Denies: change in skin color, change in hair/nails. Objective Last 24 Hrs of Vital Signs/I&O Vital Signs Date Time Temp Pulse Resp B/P B/P Pulse O2 O2 Flow FiO2 Mean Ox Delivery Rate 11/05 0828 97.9 60 18 112/56 96 Room Air 11/04 2256 97.8 62 20 112/70 96 Room Air 11/04 1820 64 110/54 11/04 1609 65 100/50 11/04 1549 98.1 64 20 118/60 95 Intake & Output 11/05 1600 11/05 0800 11/05 0000 Intake Total 840 960 Output Total 425 425 Balance 415 535 Intake, IV 600 600 Intake, Oral 240 360 Output, Urine 425 425 Physical Exam General Appearance: Alert, Oriented X3 Skin: No Rashes, No Breakdown Skin Temp/Moisture Exam: Warm/Dry HEENT: Atraumatic Cardiovascular: Regular Rate, Normal S1, Normal S2 Current Medications: Current Medications Sig/Kourtney Start time Last Medication Dose Route Stop Time Status Admin Acetaminophen 650 MG Q6P PRN 11/03 1730 AC PO Aspirin 81 MG DAILY 11/04 1000 AC 11/04 PO 0925 Atorvastatin Calcium 80 MG 1700 11/03 1745 AC 11/04 PO 1627 Clopidogrel Bisulfate 75 MG DAILY 11/05 1000 AC PO Furosemide 40 MG DAILY 11/04 1000 DC 11/04 PO 0925 Insulin Aspart 0 TIDAC 11/04 1200 AC SC Lisinopril 10 MG DAILY 11/04 1000 DC PO Melatonin 5 MG AT BEDTIME 11/04 2200 AC 11/04 PO 220 Ropinirole HCl 1 MG BID 11/03 2200 AC 11/04 PO 220 Sodium Chloride 500 ML BOLUS ONE 11/04 1615 DC 11/04 IV 11/04 1714 1621 Sodium Chloride 1,000 ML Q13H 11/04 0930 AC 11/05 IV 0115 Last 24 Hrs of Lab/Issa Results Last 24 Hrs of Labs/Mics: Laboratory Tests 11/05/16 0610: Anion Gap 9, Estimated GFR 27 L, BUN/Creatinine Ratio 27.2 H Assessment/Plan Assessment: A pleasant 81 YO F with a PMH of hypertension, hyperlipidemia, diabetes, CKD stage 4 and restless leg syndrome who presents with left hand clumsiness and weakness and mild confusion x 1 day duration. She is out of window for tPA. -Multifocal acute infarcts primarily in the right MCA vascular territory and also following a watershed distribution in the frontoparietal lobes. -EKG-NSR; rate 56 -Patient passed a bedside swallow eval Assessment 1. Acute right sided thromboembolic stroke 2. HTN 3. T2DM 4. HLD 5. AMADEO on CKD stage 4- Plan Creatinine improved from yesterday. Continue 81mg daily Continue Atorvastatin 80mg daily. Patient has been started on Plavix as per neurology. No more episodes of hypotension .Will restart Lasix today, consider restarting lisinopril tomorrow if blood pressure improves Restart atenolol as an outpatient. Continue Ropinirole, Neurology is on board recommended to get vascular consult to assess for potential endarterctomy. Patient should follow up with the shellfish grower and get Echocardiogram outpatient Diabetic diet FC SC heparin for DVT PPX Problem List: 1. CVA (cerebral vascular accident) Pain Ratin Pain Location: No pain at this time Pain Goal: Remain pain free Pain Plan: When necessary Tylenol Tomorrow's Labs & Rationales: No need of labs today patient will be discharged Consulting Request: Consulting Specialty: Neurology LARRY GARCIA MD 11/05/16 1134: Attending MD Review Statement Attending Statement Attending MD Statement: examined this patient, discuss w/resident/PA/[employer], agreed w/resident/PA/[employer], reviewed EMR data (avail) Attending Assessment/Plan: 81F PMH restless leg syndrome, HTN, T2DM admitted with acute onset of a sense of malaise, confusion, and left hand weakness and apraxia in the setting of acute CVA. MRI confirms right MCA area and frontoparietal distrubtion. Patient is improved today. She reports that she feels like she's back to her baseline, and her left hand function is completely back to normal. Neurological exam is normal. Vitals stable, labs reviewed. Plan - Stable for discharge home - Carotid doppler shows 70% left ICA stenosis. Will require outpatient vascular surgery follow up. - May restart Lisinopril and Lasix on discharge - Continue ASA, Plavix and Atorvastatin - Outpatient cardiology follow up for cardiac monitoring - PT/OT referral - Outpatient echocardiogram
[2016-11-05] MEDS ORDERED: ATORVASTATIN CA80 M1 PO (09:44)
[2016-11-05] MEDS ORDERED: ASPIRIN EC81 M1 PO (09:44)
[2016-11-05] MEDS ORDERED: PLAVIX75 M1 PO ×2 (09:44→10:05)
--- NOTE | 2016-11-05 09:48 | Patient Discharge Instructions ---
See Addendum Discharge Instructions General Discharge Information Special Instructions: 1 Please follow-up with your primary care physician within 1 week after discharge. 2. Please start taking lisinopril from tomorrow. 3. Please check BEP as an outpatient( elevated creatinine on discharge) 3. Please get vascular consult to assess for potential endarterctomy. 4.please follow-up with your mat inspector after discharge and get Echocardiogram as outpatient . 5. Please follow-up with the occupational therapy as an outpatient. Diet Recommended Diet: Heart Healthy Activity Activity Self Limited: Yes Acute Coronary Syndrome Inclusion Criteria At DC or during hospital stay patient has or had the following: ACS DIAGNOSIS No Discharge Core Measures Meds if any: Prescribed or Continued at Discharge Meds if any: NOT Prescribed or Continued at Discharge Congestive Heart Failure Inclusion Criteria At DC or during hospital stay patient has or had the following: CHF DIAGNOSIS No Discharge Core Measures Meds if any: Prescribed or Continued at Discharge Meds if any: NOT Prescribed or Continued at Discharge Cerebrovascular accident Inclusion Criteria At DC or during hospital stay patient has or had the following: CVA/TIA Diagnosis Yes Discharge Core Measures Meds if any: Prescribed or Continued at Discharge Antithrombotic Yes Statin (required if LDL =>70) Yes Anticoagulant No Meds if any: NOT Prescribed or Continued at Discharge Venous thromboembolism Inclusion Criteria VTE Diagnosis No VTE Type NONE VTE Confirmed by (Test) NONE Discharge Core Measures - Per Current guidelines, there needs to be overlap - treatment for the first 5 days of Warfarin therapy. - If discharged on Warfarin prior to 5 days of - overlap therapy, the patient will need to be - assessed for post discharge needs including - *Post discharge parental anticoagulation - *Warfarin and/or parental anticoagulation education - *Follow up date to check INR post discharge At least 5 days overlap therapy as Inpatient No Meds if any: Prescribed or Continued at Discharge Note: Overlap Therapy is Warfarin and Anticoagulant Meds if any: NOT Prescribed or Continued at Discharge
--- NOTE | 2016-11-05 11:37 | PN- Cardiology ---
Subjective Subjective: * No significant deficits noted at this time. * sinus rhythm * creatinine improved to 1.8 Objective Vital Signs and I&Os Vital Signs Date Time Temp Pulse Resp B/P B/P Pulse O2 O2 Flow FiO2 Mean Ox Delivery Rate 11/06 0728 97.9 60 18 112/56 96 Room Air 11/04 2256 97.8 62 20 112/70 96 Room Air 11/04 1820 64 110/54 11/04 1609 65 100/50 11/04 1549 98.1 64 20 118/60 95 Intake & Output 11/05 1600 11/05 0800 11/05 0000 11/04 1600 11/04 0800 11/04 0000 Intake Total 734 841 6135 880 Output Total 425 425 425 Balance 583 800 3589 455 Intake, IV 600 600 375 400 Intake, Oral 240 360 800 480 Output, Urine 425 425 425 Patient 175 lb Weight Weight Reported by Patient Measurement Method Physical Exam: General: WD/ obese female in NAD; alert and oriented x3 Neck: no JVD, left carotid bruit, no bruit on the right Heart: RRR without murmur Lungs: clear bilaterally Extremities: no edema Assessment/Plan Assessment/Plan * This patient has significant carotid disease bilaterally 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 She will benefit from a carotid endarterectomy. Continue her statin and aspirin. * Patient's blood pressure is well controlled on her current drug regimen. I would not restart her ACEI at this time to avoid hypotension in the setting of acute stroke. * Obtain an echocardiogram and monitor on telemetry. Continue telemetry? Yes
--- NOTE | 2016-11-16 01:28 | Discharge Summary ---
Visit Information Visit Dates Admission Date: 11/03/16 Discharge Date: 11/05/16 Hospital Course Course Attending Physician: Dr. Calero Consulting Request: Consulting Specialty: Neurology Hospital Course: 81F PMH restless leg syndrome, HTN, T2DM admitted with acute onset of a sense of malaise, confusion, and left hand weakness and apraxia in the setting of acute CVA. MRI confirms right MCA area and frontoparietal distrubtion. Patient is improved today. She reports that she feels like she's back to her baseline, and her left hand function is completely back to normal. Neurological exam is normal. Vitals stable, labs reviewed. Plan - Stable for discharge home - Carotid doppler shows 70% left ICA stenosis. Will require outpatient vascular surgery follow up. - May restart Lisinopril and Lasix on discharge - Continue ASA, Plavix and Atorvastatin - Outpatient cardiology follow up for cardiac monitoring - PT/OT referral - Outpatient echocardiogram Allergies: Coded Allergies: No Known Allergies (11/03/16) Discharge Instructions Medications at Discharge Discharge Medications: Stop taking the following medications: Lisinopril (Lisinopril) 10 MG TABLET ORAL DAILY Qty = 90 Atorvastatin Calcium (Atorvastatin Calcium) 20 MG TABLET ORAL DAILY Qty = 90 Continue taking these medications: Ropinirole HCl (Ropinirole HCl) 1 MG TABLET 1 Tablet ORAL TWICE DAILY Qty = 180 Comments: NOT GIVEN Furosemide (Furosemide) 40 MG TABLET 1 Tablet ORAL DAILY Qty = 90 Comments: NOT GIVEN Atenolol/Chlorthalidone (Atenolol-Chlorthalidone 100-25) 100 MG-25 MG TABLET 1 Tablet ORAL DAILY Qty = 90 Comments: NOT GIVEN Glipizide (Glipizide ER) 2.5 MG TAB.ER.24 1 Tablet ORAL DAILY Qty = 90 Comments: NOT GIVEN Start taking the following new medications: Clopidogrel Bisulfate (Plavix) 75 MG TABLET 1 Tablet ORAL DAILY Qty = 30 No Refills Comments: Last Taken:11/05/16 Time: 1000 Aspirin (Ecotrin*) 81 MG TABLET.DR 1 Tablet ORAL DAILY Qty = 30 No Refills Comments: Last Taken:11/05/16 Time:1000 Atorvastatin Calcium (Atorvastatin Calcium) 80 MG TABLET 1 Tablet ORAL DAILY Qty = 30 No Refills Comments: Last Taken: 11/05/16 Time: 1700
== END 2016-11-05 13:40 | disposition home health service (06) | DRG 66 ==
LOC: ERH 11:45 → 1NO 15:46 → ERHI 15:46 → ENRESERV 17:24 → ENTRNSPT 18:56 → 1NO 19:18 → CMPTRNSPT 19:18 → ENPENDDIS 11-05 13:00 → 1NO 11-05 13:40
PROVIDERS: Emergency Medicine; Student in an Organized Health Care Education/Training Program; ADMIT Internal Medicine
DX: I63.9 Cerebral infarction, unspecified (principal); E11.9 Type 2 diabetes mellitus without complications; I10 Essential (primary) hypertension; E78.5 Hyperlipidemia, unspecified; Z79.84 Long term (current) use of oral hypoglycemic drugs; N28.9 Disorder of kidney and ureter, unspecified; I65.23 Occlusion and stenosis of bilateral carotid arteries
CPT/HCPCS: 1NSP; 70551; 81003; 82436; 93005; 93010; 97116-GO; 97162-GP; 97530-GO; J3490; J7040; J7042

== ENCOUNTER 2016-12-21 01:54 | Inpatient (IN) | payer OTHER ==
[~2016-12-21] VITALS: Ht 162.6 cm; Wt 79.4 kg
[~2016-12-21 01:54] MED LIST: ASPIRIN EC81 M1 PO; ATENOLOL-CHLOR1 EACH PO; ATORVASTATIN CA20 M1 PO; ATORVASTATIN CA80 M1 PO; FUROSEMIDE40 M1 PO; GLIPIZIDE ER2.5 M1 PO; LISINOPRIL10 M1 PO; PLAVIX75 M1 PO; PREDNISOLONE ACE5 ML OPH; ROPINIROLE HCL1 MG PO
--- NOTE | 2016-12-21 09:41 | Patient Discharge Instructions ---
Discharge Instructions General Discharge Information You were seen/treated for: carotid artery stenosis You had these procedures: right carotid endarterectomy (12/21/16) Watch for these problems: fever>101.3, increased pain, redness/swelling/drainage, dizziness, shortness of breath, chest pains No bath, but you may shower: Yes Other wound care: dry guaze dressing changes daily Special Instructions: leave white steri strips in place Diet Continue normal diet: Yes Recommended Diet: Heart Healthy Activity Full Activity/No Limits: No Activity Self Limited: Yes Pounds, do NOT lift more than: 10 Other activity limits: no heavy lifting. no strenuous activity. Acute Coronary Syndrome Inclusion Criteria At DC or during hospital stay patient has or had the following: ACS DIAGNOSIS No Discharge Core Measures Meds if any: Prescribed or Continued at Discharge Meds if any: NOT Prescribed or Continued at Discharge Congestive Heart Failure Inclusion Criteria At DC or during hospital stay patient has or had the following: CHF DIAGNOSIS No Discharge Core Measures Meds if any: Prescribed or Continued at Discharge Meds if any: NOT Prescribed or Continued at Discharge Cerebrovascular accident Inclusion Criteria At DC or during hospital stay patient has or had the following: CVA/TIA Diagnosis No Discharge Core Measures Meds if any: Prescribed or Continued at Discharge Meds if any: NOT Prescribed or Continued at Discharge Venous thromboembolism Inclusion Criteria VTE Diagnosis No VTE Type NONE VTE Confirmed by (Test) NONE Discharge Core Measures - Per Current guidelines, there needs to be overlap - treatment for the first 5 days of Warfarin therapy. - If discharged on Warfarin prior to 5 days of - overlap therapy, the patient will need to be - assessed for post discharge needs including - *Post discharge parental anticoagulation - *Warfarin and/or parental anticoagulation education - *Follow up date to check INR post discharge Meds if any: Prescribed or Continued at Discharge Note: Overlap Therapy is Warfarin and Anticoagulant Meds if any: NOT Prescribed or Continued at Discharge
--- NOTE | 2016-12-21 10:27 | Operative Report ---
Operative/Inv Procedure Report Surgery Date: 12/21/16 Name of Procedure: Right carotid endarterectomy with patch angioplasty Pre-Operative Diagnosis: Right carotid critical stenosis Post-Operative Diagnosis: Right carotid critical stenosis Estimated Blood Loss: 50ml to 100ml Surgeon/Physical Sciences Professor: CORRINA NOLAN MD/Tino NEVILLE Anesthesia: general endotracheal tube IV Fluids: 1.1L Implants: Bovine pericardial patch in the right carotid artery Urine Output: Not measured Drains: None Specimens: Right carotid plaque Microbiology: None Complications: None Condition: Stable Operative Indication: 81y/o woman with progression to critical stenosis of the right carotid artery. She presents today for right carotid endarterectomy in order to decrease her risk of subsequent stroke Operative/Procedure Note Note: After informed consent was obtained, patient was brought to the operating room and placed supine on the operating table. General endotracheal anesthesia was initiated. Right neck was prepped and draped in the usual sterile fashion. 2g cefazolin was given intravenously prior to skin incision. Longitudinal incision was made in the right neck over the anterior border of the sternocleidomastoid muscle. Dissection was carried down using electrocautery. Platysma was divided using electrocautery. Sternocleidomastoid muscle was dissected from its anterior attachments and retracted laterally. Internal jugular vein was dissected from its anterior attachements and retracted laterally. Facial vein was divided in continuity between 4-0 silk ties. This allowed exposure to the carotid artery. Calcified plaque was noted at the carotid bifurcation. Common, external, and internal carotid arteries were individually dissected and controlled with vessel loops. CN X and XII were visualized and protected from injury. Patient was fully anticoagulated with 8000 units of heparin. I clamped the internal carotid artery, followed by hemostasis of the external and common carotid arteries. Longitudinal arteriotomy was made from the common into the internal carotid artery. #12 [place] shunt was placed first into the ICA, followed by backbleeding and placement into the right CCA. The right carotid system was thus shunted. [place] elevator was used to perform endarterectomy of the common carotid artery extending into the internal carotid artery. Eversion endarterectomy of the external carotid artery was performed. I achieved a nice end point to the plaque in the ICA. All loose debris was removed from the inside of the vessel lumen. Bovine pericardial patch was brought into the field , and patch angioplasty of the common carotid artery into the ICA was performed with running 6-0 and 7-0 Prolene sutures. Shunt was removed prior to completion of the anastomosis. All vessels were flushed prior to completion of the anastomosis. Patch was completed, and flow was restored first to the external carotid artery, followed by nondenominational of flow to the internal carotid artery. Doppler insonation of all inflow and outflow vessels showed excellent signals in all. Anticoagulation was partially reversed with 20mg protamine. Hemostasis was augmented using Surgicel. Wound was then closed in 3 layers with 3-0 Vicryl sutures for the fat pad, 3-0 Vicryl for the platysma, and 4-0 Monocryl for the skin. Skin glue was applied. Patient was then awakened from anesthesia, was able to move all 4 extremities, then was extubated and brought to the recovery room in stable condition. Findings: Calcified plaque in right carotid artery causing critical stenosis. After the operation, she had widely patent flow throughout Discharge Disposition: Same Day Admissions CC: OVIDIO COLMENARES,CORRINA Guzman
--- NOTE | 2016-12-21 11:18 | Admission Core Measures ---
Admission Lab Results I reviewed the following labs: Laboratory Tests 12/21 0632 Chemistry Potassium (3.5 - 5.1 mmol/L) 2.9 *L Admission Meds I reviewed the following Meds: Current Medications Sig/Kourtney Start time Last Medication Dose Stop Time Status Admin Aspirin Buffered 81 MG DAILY 12/21 1104 UNVr (Ecotrin) Atenolol 100 MG DAILY 12/22 1000 UNVr (Tenormin) Atorvastatin Calcium 80 MG DAILY 12/22 1000 UNVr (Lipitor) Clopidogrel Bisulfate 75 MG DAILY 12/21 1106 UNVr (Plavix) Furosemide 40 MG DAILY 12/22 1000 UNVr (Lasix) Glipizide 2.5 MG DAILY 12/22 1000 UNVr (Glucotrol XL) Ropinirole HCl 1 MG BID 12/210 UNVr (Requip) Acute Coronary Syndrome Inclusion Criteria ACS Diagnosis No Inpatient Core Measures LDL Reminder: If No, please order W/I first 24hr of stay Congestive Heart Failure Inclusion Criteria CHF Diagnosis No Cerebrovascular accident Inclusion Criteria CVA/TIA Diagnosis No Inpatient Core Measures Bedside Swallow Eval Reminder: If BSE failed, place ST order Antithrombotic Reminder: Order Antithrombotic Medication by end of day 2 Antithrombotic Reminder: Document Reason Antithrombotic Not ordered by end of day 2 AFIB/Flutter Reminder: If Present, add to problem list AFIB/Flutter Reminder: Order Anticoag Medication for pts with AFIB/Flutter Atherosclerosis Reminder: If Present, add to problem list LDL Reminder: If No, please order W/I first 24hr of stay PT Order Reminder: If No, please order Venous thromboembolism Inpatient Core Measures VTE Risk Factors: Age > 40, Surgery No [facility] VTE prophylaxis d/t No contraindications No VTE Pharm Prophylaxis d/t No contraindications Inclusion Criteria - Per Current guidelines, there needs to be overlap - treatment for the first 5 days of Warfarin therapy. - Parenteral Anticoagulation (IV or SC) needs to be - given along with Warfarin therapy. VTE Diagnosis No VTE Type NONE VTE Confirmed by (Test) NONE Problem List As ranked by this Provider includes Assessment & Plan 1. Carotid stenosis, right HOME MEDS Home Med List Aspirin (Ecotrin*) 81 MG TABLET.DR 1 TAB PO DAILY CVA Atenolol/Chlorthalidone (Atenolol-Chlorthalidone 100-25) 100 MG-25 MG TABLET 1 TAB PO DAILY HEART (Reported) Atorvastatin Calcium 80 MG TABLET 1 TAB PO DAILY HY[PERLIPIDEMIA Clopidogrel Bisulfate (Plavix) 75 MG TABLET 1 TAB PO DAILY CVA Furosemide 40 MG TABLET 1 TAB PO DAILY WATER RETENTION (Reported) Glipizide (Glipizide ER) 2.5 MG TAB.ER.24 1 TAB PO DAILY DIABETES (Reported) Ropinirole HCl 1 MG TABLET 1 TAB PO BID RESTLESS LEGS (Reported)
[2016-12-21] MEDS ORDERED: TYLENOL WITH C1 EACH PO (11:19)
--- NOTE | 2016-12-21 14:17 | PN- Vascular Surgery ---
Subjective Subjective: Post op check: Patient without complaints at the present time. No pain noted to surgical site. Denies chest pain, shortness of breath and difficulty breathing. No headache, blurry vision, photophobia. No complaints of nausea or vomitting. Objective Vital Signs and I&Os General: Alert and oriented x3. no acute distress Neuro: Cranial nerves intact, no difficulty swallowing. Speech clear. Neck: Surgical site: Incision well approximated, dermabond in place, no dressing, no drain. No swelling noted. Cardiac: R RR, s1s2 Pulm: CTA bilaterally ABD: Non-tender, non-distended Extremities: Moves all extremities, distal sensation intact, skin warm and well perfused, bialteral calves soft and non-tender Assessment/Plan Assessment/Plan This is a 81 year old female POD 0 s/p R carotid endarterectomy -ASA and Plavix to restart today -Tylenol #3 as needed for pain -Regular diet, advance as tolerated -Neuro checks q1hr -Maintain sbp between 90-140 -Call surgical pa for hypertension, will offer beta tonya vs nitro -Anticipate discharge home tomorrow -Will d/w Dr. Gloria Core Measures/Miscellaneous Venous Thromboembolism VTE Risk Factors: Age > 40, Surgery VTE Contraindications: No Contraindications VTE Diagnosis: No VTE Type: NONE VTE Confirmed by (Test): NONE Beta Tonya Is Beta Tonya a Home Med? Yes Antibiotics Is Patient on Antibiotics? Yes If Yes: prophylaxis
[2016-12-21 16:00] VITALS: BP 109/41
--- NOTE | 2016-12-21 17:34 | NUR ---
PT ADMITTED FROM PACU AT 1315. PT ALERT AND ORIENTED, CMS X4, NO NEURO DEFECITS NOTED. PT SB 50'S WITH A MANUAL BP 140/50, R HELOI 159/52, AUTO 135/43. 2LNC, O2 SAT 100% TITRATED TO ROOM AIR- O2 SAT 96%, LUNGS CLEAR. ABDOMEN SOFT W +BS, -N/V. PT STARTED ON ICE CHIPS, ADVANCED TO CRACKERS AND JUICE AND THEN TO A REGULAR DIET. PT HAS TOLERATED WELL AND OFFERS NO COMPLAINTS, DENYING PAIN SINCE TRANSFER. R SIDE OF NECK-SURGICAL SITE IS C/D/I W DERMABOND AND ICE PACK. PT IS ON NS AT 75ML/HR AND HAS VOIDED 50ML CLR YELLOW URINE. PT AND FAMILY HAVE BEEN PROVIDED EDUCATION ON POC AND DEMONSTRATE UNDERSTANDING. UNIT ORIENTATION PROVIDED. 2 SIDE RAILS UP AND CALL MASTERS WITHIN REACH.
--- NOTE | 2016-12-21 17:52 | NUR ---
IN REVIEWING PT LABS. NOTED PT K 2.9. REVIEWED EMAR. NO INTERVENTIONS NOTED FOR THIS CRITICAL VALUE. CALLED JOSE CARLOS DOBBINS SURG PA. REPEAT K LEVEL ORDERED AND OBTAINED.
--- NOTE | 2016-12-21 23:23 | NUR ---
AVSS.FOLLOW COMMANDS.PUPILS REACTIVE.NO NEURO DEFICIT.MYERS WITH +CMS.+PP.NO EDEMA.RIGHT NECK INCISION CDI WITH NO HEMATOMA.RIGHT HELIO DISCONNECTED AND SURGICAL PA (SHANE) MADE AWARE.K REPLACED.LCTA AND ON RA WITH SATS .95%.HOB ELEVATED.BRAYAN PO WELL. PLAN OF CARE REVIEWED
[2016-12-22 05:44] LABS: ABSOLUTE BASOPHIL COUNT 0 /CUMM (0.0-0.2); ABSOLUTE EOSINOPHIL COUNT 0 /CUMM (0.0-0.7); ABSOLUTE GRANULOCYTE CT 10.3 /CUMM (1.4-6.5); ABSOLUTE LYMPH COUNT 1.5 /CUMM (1.2-3.4); ABSOLUTE MONOCYTE COUNT 0.6 /CUMM (0.10-0.60); BASOPHIL % 0.3 % (0.0-2.0); EOSINOPHIL % 0 % (0-5); GRANULOCYTE % 83.2 % (42.2-75.2); HEMATOCRIT 29.6 % (37-47); MEAN CORPUSCULAR HGB 32.3 PG (27.0-31.0); MEAN CORPUSCULAR HGB CONC 33.7 G/DL (33.0-37.0); MEAN PLATELET VOLUME 7.7 FL (7.4-10.4); PLATELET COUNT 213 /CUMM (130-400); RBC DISTRIBUTION WIDTH 13.2 % (11.5-14.5); RED BLOOD CELL CT 3.09 /CUMM (4.20-5.40); WHITE BLOOD CELL COUNT 12.4 /CUMM (4.8-10.8)
--- NOTE | 2016-12-22 06:14 | PN- Vascular Surgery ---
See Addendum Subjective Subjective: some pain at incision, no extremity weakness/paresthesias/speech changes. wants to dc home today. no cp/sob/n/v Objective Vital Signs and I&Os Vital Signs Date Time Temp Pulse Resp B/P B/P Pulse O2 O2 Flow FiO2 Mean Ox Delivery Rate 12/21 1600 96 Room Air Room Air 12/21 1600 97.1 62 20 109/41 95 Room Air Room Air 12/21 1315 99 Room Air Intake & Output 12/22 0812/22 0000 12/21 1600 12/21 0800 12/21 0000 12/20 1600 Intake Total 120 835 Output Total 450 250 Balance -330 585 Intake, IV 375 Intake, Oral 120 460 Number 0 Bowel Movements Output, Urine 450 250 Patient 175 lb Weight Weight Reported by Patient Measurement Method Physical Exam: GEN: NAD CARD: S1S2 RRR PULM: CTAB NECK/INCISION: incisions CDI, some edema, some eccymoses, ttp ABD: soft, nt EXT: calves soft nt, ALPS on bl, moves 4 extremities, strength intact and equal bilaterally Results Last 48 Hours of Labs: Laboratory Tests 12/22 12/21 12/21 0500 1811 0632 Chemistry Sodium Pending Potassium (3.5 - 5.1 mmol/L) Pending 3.2 L 2.9 *L Chloride Pending Carbon Dioxide Pending Anion Gap Pending BUN Pending Creatinine Pending BUN/Creatinine Ratio Pending Hematology CBC w Diff NO MAN DIFF REQ WBC (4.8 - 10.8 /CUMM) 12.4 H RBC (4.20 - 5.40 /CUMM) 3.09 L Hgb (12.0 - 16.0 G/DL) 10.0 L Hct (37 - 47 %) 29.6 L MCV (81.0 - 99.0 FL) 96.0 MCH (27.0 - 31.0 PG) 32.3 H RDW (11.5 - 14.5 %) 13.2 Plt Count (130 - 400 /CUMM) 213 MPV (7.4 - 10.4 FL) 7.7 Gran % (42.2 - 75.2 %) 83.2 H Lymphocytes % (20.5 - 51.1 %) 11.7 L Monocytes % (1.7 - 9.3 %) 4.8 Eosinophils % (0 - 5 %) 0 Basophils % (0.0 - 2.0 %) 0.3 Absolute Granulocytes (1.4 - 6.5 /CUMM) 10.3 H Absolute Lymphocytes (1.2 - 3.4 /CUMM) 1.5 Absolute Monocytes (0.10 - 0.60 /CUMM) 0.6 Absolute Eosinophils (0.0 - 0.7 /CUMM) 0 Absolute Basophils (0.0 - 0.2 /CUMM) 0 PUBS MCHC (33.0 - 37.0 G/DL) 33.7 Assessment/Plan Assessment/Plan A: 81F POD1 sp R CEA, appropriate postop pain, stable P: - ALPS, OOB - reg diet as tolerated - prn pain meds - am labs, k repleted yesterday - dc planning - will dw attending Core Measures/Miscellaneous Venous Thromboembolism VTE Risk Factors: Age > 40, Surgery VTE Contraindications: No Contraindications VTE Diagnosis: No VTE Type: NONE VTE Confirmed by (Test): NONE Beta Tonya Is Beta Tonya a Home Med? Yes Antibiotics Is Patient on Antibiotics? Yes If Yes: prophylaxis
[2016-12-22 08:00] VITALS: BP 114/50
--- NOTE | 2016-12-22 08:56 | Surg Short-stay <48hrs Dis Sum ---
Visit Information Visit Dates Admission Date: 12/21/16 Discharge Date: 12/22/16 Surgical Short Stay DC Summary Admission Diagnosis: Right carotid critical stenosis Final Diagnosis: same as above s/p right carotid endarterectomy with patch angioplasty Procedure(s): Surgery Date: 12/21/16 Name of Procedure: Right carotid endarterectomy with patch angioplasty Summary/Significant Findings: Electively scheduled right carotid endarterectomy with patch angioplasty by on 12/22/16 for right carotid critical stenosis. She was monitored overnight in the ICU for continuous blood pressure monitoring via a-line, where her vitals remained stable throughout her admission. Her aspirin and plavix were restarted after surgery. No neurological events. Prescribed tylenol #3 for pain control. Discharged to home POD#1 morning after being seen by our team and Tino Escudero PA-C. Condition at Discharge: stable Discharge Disposition: home or self care Discharge instructions provided to patient/family: Yes Post discharge follow-up plan: call to schedule one week follow up visit with , if not previously scheduled continue asa / plavix
== END 2016-12-22 12:15 | DRG 39 ==
LOC: SDA 01:54 → CRI 01:54 → ENRESERV 11:47 → ENTRNSPT 12:25 → EDTRNSPT 13:07 → EDTRNSPTSTS 13:07 → CMPTRNSPT 13:22 → CRI 14:06
PROVIDERS: Nurse Practitioner; ADMIT Surgery
PROC: 03CM0ZZ Extirpation of Matter from Right External Carotid Artery, Open Approach (ICD-10-PCS; principal; 2016-12-21)
PROC: 03CH0ZZ Extirpation of Matter from Right Common Carotid Artery, Open Approach (ICD-10-PCS; 2016-12-21)
PROC: 03CK0ZZ Extirpation of Matter from Right Internal Carotid Artery, Open Approach (ICD-10-PCS; 2016-12-21)
PROC: 03UH0JZ Supplement Right Common Carotid Artery with Synthetic Substitute, Open Approach (ICD-10-PCS; 2016-12-21)
PROC: 03UK0JZ Supplement Right Internal Carotid Artery with Synthetic Substitute, Open Approach (ICD-10-PCS; 2016-12-21)
DX: I65.21 Occlusion and stenosis of right carotid artery (principal); E11.9 Type 2 diabetes mellitus without complications; I12.9 Hypertensive chronic kidney disease with stage 1 through stage 4 chronic kidney disease, or unspecified chronic kidney disease; N18.9 Chronic kidney disease, unspecified; E78.5 Hyperlipidemia, unspecified; Z86.73 Personal history of transient ischemic attack (TIA), and cerebral infarction without residual deficits; G25.81 Restless legs syndrome; Z79.02 Long term (current) use of antithrombotics/antiplatelets; Z79.84 Long term (current) use of oral hypoglycemic drugs
CPT/HCPCS: CCU; 36415; 82436; C9399; J1100; J1644

== ENCOUNTER 2017-12-20 03:02 | Inpatient (IN) | payer OTHER ==
[~2017-12-20] VITALS: Ht 160 cm; Wt 82.6 kg
[~2017-12-20 03:02] MED LIST changes: +LISINOPRIL5 M1 PO; +TYLENOL WITH C1 EACH PO
--- NOTE | 2017-12-20 09:29 | Operative Report ---
Operative/Inv Procedure Report Surgery Date: 12/20/17 Name of Procedure: Left carotid endarterectomy with patch angioplasty Pre-Operative Diagnosis: Left carotid stenosis Post-Operative Diagnosis: Left carotid stenosis Estimated Blood Loss: scant Surgeon/Senior Geologist: Faizan COLMENARES,JAMIN Amezcua Anesthesia: general endotracheal tube IV Fluids: 1000 ml Implants: Bovine pericardial patch in left carotid artery Urine Output: N/M Drains: None Specimens: Left carotid plaque Complications: None Condition: Stable Operative Indication: 82y/o woman with prior hx of symptomatic right carotid stenosis. I had performed right carotid endarterectomy, and she has continued freedom from cerebral ischemia. She has progression to critical stenosis of left carotid artery. She presents today for left carotid endarterectomy in order to decrease her risk of subsequent stroke. Operative/Procedure Note Note: After informed consent was obtained, patient was brought to the operating room and placed supine on the operating table. General endotracheal anesthesia was initiated. Left neck was prepped and draped in the usual sterile fashion. 2g cefazolin was given intravenously prior to skin incision. Longitudinal incision was made in the left neck over the anterior border of the sternocleidomastoid muscle. Platysma was divided using electrocautery. Sternocleidomastoid muscle was dissected away from its anterior attachment. Jugular vein was isolated and retracted laterally. Common carotid artery was identified. It was calcified and diseased. Common, internal, and external carotid arteries were individually isolated and controlled with vessel loops. CN X and XII were protected from injury. Patient was fully anticoagulated with 6500 units of heparin. Hemostasis was achieved on the carotid arteries. Longitudinal arteriotomy was made in the common carotid artery extending into the internal carotid artery. # 10 Standard shunt was placed first into the internal carotid artery, followed by backflushing and placement into the common carotid artery. [place] elevator was used to perform endarterectomy of the common carotid artery into the internal carotid artery. I achieved a nice end point to the plaque. Eversion endarterectomy was performed of the external carotid artery. Loose debris were removed from the inside of the vessel lumen. Bovine pericardial patch was used to close the arteriotomy with running 6-0 and 7-0 Prolene sutures. Shunt was removed prior to completion of the anastomosis, and appropriate flushing was performed. Anastomosis was completed. Flow was first restored to the external carotid artery, followed by anabaptist of flow into the internal carotid artery. Doppler insonation of the carotid arteries showed excellent signals in all. Patient was given 20mg of protamine to partially reverse the anticoagulation. Surgicel was used to augment hemostasis. Wound was then closed in 3 layers with 3-0 Vicryl sutures for the deep tissue and dermis, and 4 -0 monocryl for the skin. Skin glue was applied. Patient was then awakened from anesthesia, was able to move all 4 extremities, then was extubated and brought to the recovery room in stable condition. Due to the complexity of the case and the lack of qualified resident support, surgical PA was required to assist with operation. Findings: Calcified critical stenosis of left ICA. After the operation, she had widely patent flow through the left carotid artery. Discharge Disposition: Same Day Admissions
--- NOTE | 2017-12-20 10:33 | Admission Core Measures ---
Acute Coronary Syndrome (CM) ACS Core Measures Acute Coronary Syndrome Diagnosis No Congestive Heart Failure (NEW) CHF Core Measures Congestive Heart Failure Diagnosis No Cerebrovascular Accident CVA Core Measures CVA/TIA Diagnosis No Venous Thromboembolism VTE Core [place]ola (View Protocol) VTE Risk Factors Surgery No Mechanical VTE Prophylaxis d/t N/A MechProphylax Ordered No VTE Pharm Prophylaxis d/t NA PharmProphylax ordered Problem List As ranked by this Provider includes Assessment & Plan 1. Left carotid artery stenosis HOME MEDS Home Med List Aspirin (Ecotrin*) 81 MG TABLET.DR 1 TAB PO DAILY CVA Atenolol/Chlorthalidone (Atenolol-Chlorthalidone 100-25) 100 MG-25 MG TABLET 1 TAB PO DAILY BP (Reported) Atorvastatin Calcium 80 MG TABLET 1 TAB PO DAILY HY[PERLIPIDEMIA Clopidogrel Bisulfate (Plavix) 75 MG TABLET 1 TAB PO DAILY CVA Glipizide (Glipizide ER) 2.5 MG TAB.ER.24 1 TAB PO DAILY DIABETES (Reported) Lisinopril 5 MG TABLET 1 TAB PO DAILY BP (Reported) Ropinirole HCl 1 MG TABLET 1 TAB PO BID RESTLESS LEGS (Reported)
--- NOTE | 2017-12-20 13:38 | PN- Vascular Surgery ---
Subjective Subjective: Patient reports throat discomfort, a sensation of something in her throat and difficulty swallowing water. She denies vision or voice changes, chest pain, sob , difficulty breathing. Objective Vital Signs and I&Os Vital Signs Date Time Temp Pulse Resp B/P B/P Pulse O2 O2 Flow FiO2 Mean Ox Delivery Rate 12/20 1548 55 180/80 12/20 1153 97 Intake & Output 12/20 1600 12/20 0800 12/20 0000 12/19 1600 12/19 0800 12/19 0000 Intake Total 1840 Output Total 230 Balance 1610 Intake, IV 1600 Intake, Oral 240 Number 0 Bowel Movements Output, Urine 230 Patient 182 lb 180 lb Weight Weight Bed scale Measurement Method Physical Exam: Gen - resting comfortably in nad HEENT - +swollen posterior oropharynx and uvula noted Neck - L incision closed with internal sutures and dermabond with mild surrounding ecchymosis and mild swelling, no hematoma noted Cardiac - S1S2 noted Lungs - CTAB Abd - soft, nontender Ext - alps no edema or calf tenderness Neuro - a&o x3, no gross focal deficits Assessment/Plan Assessment/Plan 82 F s/p L CEA with throat discomfort/uvula edema likely due to ET tube Cont clears, aat, IVF Pain regimen prn Home meds ordered Order Lisiopril now Resume home asa, plavix in am Keep uri in place, likely d/c in am Keep alps in place, oob to chair today May need decadron IV if dysphagia worsens D/w Dr. Gloria and anesthesia Core Measures Venous Thromboembolism VTE Risk Factors Surgery No Mechanical VTE Prophylaxis d/t N/A MechProphylax Ordered No VTE Pharm Prophylaxis d/t NA PharmProphylax ordered
[2017-12-20 16:00] VITALS: BP 178/80
[2017-12-21] VITALS: BP 150/52
--- NOTE | 2017-12-21 05:45 | PN- Vascular Surgery ---
See Addendum Subjective Subjective: no issues overnight. BP from 110s-160s. some throat discomfort, no difficulty swallowing, no trouble breathing Objective Vital Signs and I&Os Vital Signs Date Time Temp Pulse Resp B/P B/P Pulse O2 O2 Flow FiO2 Mean Ox Delivery Rate 12/21 0000 97 Room Air Room Air 12/21 0000 98.6 58 14 150/52 97 Room Air Room Air 12/20 2000 96 Room Air Room Air 12/20 1913 70 192/99 12/20 1835 71 156/54 12/20 1824 68 156/54 12/20 1748 61 206/72 12/20 1715 Room Air Room Air 12/20 1600 98 Room Air 12/20 1600 96.4 52 13 178/80 98 Room Air 12/20 1548 55 180/80 12/20 1153 97 Intake & Output 12/21 0800 12/21 0000 12/20 1600 12/20 0800 12/20 0000 12/19 1600 Intake Total 390 1840 Output Total 1125 230 Balance -735 1610 Intake, IV 150 1600 Intake, Oral 240 240 Number 0 0 Bowel Movements Output, Urine 1125 230 Patient 182 lb 180 lb Weight Weight Bed scale Measurement Method Physical Exam: Gen -nad neuro- no focal deficits incision- L neck mild ecchymosis/edema, ttp, soft, incision cdi Cardiac - S1S2 Lungs-ctab Ext-calves soft nt, alps on bl Results Last 48 Hours of Labs: Laboratory Tests 12/21 0512 Chemistry Sodium Pending Potassium Pending Chloride Pending Carbon Dioxide Pending Anion Gap Pending BUN Pending Creatinine Pending BUN/Creatinine Ratio Pending Hematology CBC w Diff Pending WBC Pending RBC Pending Hgb Pending Hct Pending MCV Pending MCH Pending MCHC Pending RDW Pending Plt Count Pending MPV Pending Assessment/Plan Assessment/Plan 82F POD1 sp L CEA with postop throat discomfort/ edema likely due to intubation/ extubation, with hypertension at baseline exacerbated postop, improved after hydralazine and metoprolol, otherwise stable P- goal sbp 90-140, ok up to 160 labs pending diet- aat Pain meds prn Home meds asa, plavix in am alps, oob dc planning will dw attending Core Measures Venous Thromboembolism VTE Risk Factors Surgery No Mechanical VTE Prophylaxis d/t N/A MechProphylax Ordered No VTE Pharm Prophylaxis d/t NA PharmProphylax ordered
[2017-12-21 06:32] LABS: ABSOLUTE BASOPHIL COUNT 0 /CUMM (0.0-0.2); ABSOLUTE EOSINOPHIL COUNT 0 /CUMM (0.0-0.7); ABSOLUTE LYMPH COUNT 1.5 /CUMM (1.2-3.4); MEAN PLATELET VOLUME 7.9 FL (7.4-10.4); RED BLOOD CELL CT 3.48 /CUMM (4.20-5.40)
[2017-12-21 07:16] LABS: ABSOLUTE GRANULOCYTE CT 9.3 /CUMM (1.4-6.5); ABSOLUTE MONOCYTE COUNT 0.6 /CUMM (0.10-0.60); BASOPHIL % 0.1 % (0.0-2.0); EOSINOPHIL % 0.1 % (0-5); GRANULOCYTE % 80.9 % (42.2-75.2); MEAN CORPUSCULAR HGB 31.9 PG (27.0-31.0); MEAN CORPUSCULAR HGB CONC 33.6 G/DL (33.0-37.0); MEAN CORPUSCULAR VOLUME 94.9 FL (81.0-99.0); PLATELET COUNT 240 /CUMM (130-400); RBC DISTRIBUTION WIDTH 14.3 % (11.5-14.5)
[2017-12-21 07:29] LABS: WHITE BLOOD CELL COUNT 11.5 /CUMM (4.8-10.8)
[2017-12-21 08:00] VITALS: BP 150/74
[2017-12-21 08:19] VITALS: BP 178/90
[2017-12-21] MEDS ORDERED: TYLENOL325 M1 PO (13:08)
--- NOTE | 2017-12-21 13:12 | Patient Discharge Instructions ---
Discharge Instructions General Discharge Information You were seen/treated for: Left carotid stenosis You had these procedures: Left carotid endarterectomy Watch for these problems: Headaches, nausea, vomiting, facial drooping, difficulty speaking, difficulty with word finding, pain or swelling of the neck, difficulty swallowing. Call the surgeon or present to the ER with any concerns No bath, but you may shower: Yes Other wound care: Dry dressing to remain in place, change if wet Special Instructions: Call for an appointment with Dr Gloria in 7-10 days continue the aspirin and plavix Diet Continue normal diet: Yes Activity Full Activity/No Limits: No Activity Self Limited: Yes Pounds, do NOT lift more than: 10 Acute Coronary Syndrome Inclusion Criteria At DC or during hospital stay patient has or had the following: ACS DIAGNOSIS No Discharge Core Measures Meds if any: Prescribed or Continued at Discharge Meds if any: NOT Prescribed or Continued at Discharge Congestive Heart Failure Inclusion Criteria At DC or during hospital stay patient has or had the following: CHF DIAGNOSIS No Discharge Core Measures Meds if any: Prescribed or Continued at Discharge Meds if any: NOT Prescribed or Continued at Discharge Cerebrovascular accident Inclusion Criteria At DC or during hospital stay patient has or had the following: CVA/TIA Diagnosis No Discharge Core Measures Meds if any: Prescribed or Continued at Discharge Meds if any: NOT Prescribed or Continued at Discharge Venous thromboembolism Inclusion Criteria VTE Diagnosis No VTE Type NONE VTE Confirmed by (Test) NONE Discharge Core Measures - Per Current guidelines, there needs to be overlap - treatment for the first 5 days of Warfarin therapy. - If discharged on Warfarin prior to 5 days of - overlap therapy, the patient will need to be - assessed for post discharge needs including - *Post discharge parental anticoagulation - *Warfarin and/or parental anticoagulation education - *Follow up date to check INR post discharge At least 5 days overlap therapy as Inpatient No Meds if any: Prescribed or Continued at Discharge Note: Overlap Therapy is Warfarin and Anticoagulant Meds if any: NOT Prescribed or Continued at Discharge
--- NOTE | 2017-12-21 13:15 | Surg Short-stay <48hrs Dis Sum ---
Visit Information Visit Dates Admission Date: 12/20/17 Discharge Date: 12/21/17 Surgical Short Stay DC Summary Admission Diagnosis: Left carotid stenosis Final Diagnosis: Same plus status post left carotid endarterectomy Procedure(s): Left carotid endarterectomy Summary/Significant Findings: Patient underwent the above-mentioned procedure without complications. She was then transferred to the floor. She had immediate hypertensive issues postoperatively which was controlled and stabilized on postop day #1 and deemed stable for discharge having no focal findings were new functional deficits postoperatively. She will continue with her aspirin and Plavix. Follow-up as outpatient. Condition at Discharge: Good Discharge Disposition: home health services Discharge instructions provided to patient/family: Yes Post discharge follow-up plan: 7-10 days as outpatient with surgeon
--- NOTE | 2017-12-22 09:47 | PN- Vascular Surgery ---
Subjective Subjective: Pt seen and examined on behalf of Dr Teddy Gloria POD#1 form Left Carotid Endarterectomy w/ bovine pericardial patch for assymptomatic stenosis Pt progressing well clinically. Hypertensive overnight...responsive to Hydralazine. 150's systolic this AM on home antihypertensives. Denies Chest pain, Palpitations, or Shortness of Breath Reports some sore throat and difficulty clearing mucus. She denies mechanical difficulty/choking with swallowing. She is tolerating PO food and fluids...denies nausea/vomiting. She denies facial asymmetry, visual deficit, difficulty of speech or focal weekness. Her incisional pain is mild and controlled with Tylenol. She has been out of bed/ambulatory this AM. Review of Systems: As per above Hx of Present Illness. Objective Vital Signs and I&Os Intake & Output 12/22 1600 12/22 0812/22 0000 12/21 1600 12/21 0812/21 0000 Intake Total 600 390 Output Total 150 1125 Balance 450 -735 Intake, IV 150 Intake, Oral 600 240 Number 0 0 Bowel Movements Output, Urine 150 1125 Physical Exam: Gen: Awake, Alert in NAD, Afebrile Neuro: Non-focal, CN II-XII grossly intact Perrla, face symmetic, tongue midline, speech clear, no focal motor/ sensory/strength deficit Neck: Left sided incision clear, dry and intact with glue,+mild edema and ecchymosis, no hematoma CV: Reg Rhythm, S1S2, Pulm: lungs CTA bilaterally Abd: Soft, non-tender, +BS Ext: warm, supple, non-tender Current Medications: Current Medications Sig/Kourtney Start time Last Medication Dose Route Stop Time Status Admin Acetaminophen 650 MG Q6P PRN 12/20 1215 DCD PO Aspirin Buffered 81 MG DAILY 12/21 09 DCD 12/21 PO 0819 Atenolol 100 MG DAILY 12/21 09 DCD 12/21 PO 0818 Atorvastatin Calcium 80 MG 1700 12/20 1700 DCD 12/20 PO 1548 Chlorthalidone 25 MG DAILY 12/21 09 DCD 12/21 PO 0819 Clopidogrel Bisulfate 75 MG DAILY 12/21 0900 DCD 12/21 PO 0819 Dextrose/Sodium 1,000 ML .[id number] 12/20 1215 DC 12/20 Chloride IV 1215 Docusate Sodium 100 MG DAILY NEEDED PRN 12/20 1215 DCD PO Glipizide 2.5 MG DAILY AC 12/21 0700 DCD 12/21 PO 0638 Insulin Aspart 0 TIDAC 12/20 1200 DCD 12/20 SC 1637 Lisinopril 5 MG DAILY 12/20 1545 DCD 12/21 PO 0819 Ondansetron HCl 4 MG Q6P PRN 12/20 1215 DCD IV Oxycodone/ 1 TAB Q4P PRN 12/20 1215 DCD 12/20 Acetaminophen PO 2301 Oxycodone/ 2 TAB Q4P PRN 12/20 1215 DCD Acetaminophen PO Polyethylene Glycol 17 GM DAILY NEEDED PRN 12/20 1215 DCD PO Ropinirole HCl 1 MG BID 12/20 2100 DCD 12/21 PO 0818 Results Last 48 Hours of Labs: Laboratory Tests 12/21 0512 Chemistry Sodium (137 - 145 mmol/L) 137 Potassium (3.5 - 5.1 mmol/L) 5.0 Chloride (98 - 107 mmol/L) 103 Carbon Dioxide (22 - 30 mmol/L) 27 Anion Gap (5 - 16) 7 BUN (7 - 17 mg/dL) 27 H Creatinine (0.5 - 1.0 mg/dL) 1.4 H Estimated GFR (>60 ml/min) 36 L BUN/Creatinine Ratio (7 - 25 %) 19.3 Hematology CBC w Diff NO MAN DIFF REQ WBC (4.8 - 10.8 /CUMM) 11.5 H RBC (4.20 - 5.40 /CUMM) 3.48 L Hgb (12.0 - 16.0 G/DL) 11.1 L Hct (37 - 47 %) 33.0 L MCV (81.0 - 99.0 FL) 94.9 MCH (27.0 - 31.0 PG) 31.9 H MCHC (33.0 - 37.0 G/DL) 33.6 RDW (11.5 - 14.5 %) 14.3 Plt Count (130 - 400 /CUMM) 240 MPV (7.4 - 10.4 FL) 7.9 Gran % (42.2 - 75.2 %) 80.9 H Lymphocytes % (20.5 - 51.1 %) 13.3 L Monocytes % (1.7 - 9.3 %) 5.6 Eosinophils % (0 - 5 %) 0.1 Basophils % (0.0 - 2.0 %) 0.1 Absolute Granulocytes (1.4 - 6.5 /CUMM) 9.3 H Absolute Lymphocytes (1.2 - 3.4 /CUMM) 1.5 Absolute Monocytes (0.10 - 0.60 /CUMM) 0.6 Absolute Eosinophils (0.0 - 0.7 /CUMM) 0 Absolute Basophils (0.0 - 0.2 /CUMM) 0 Recent Imaging Studies: None Assessment/Plan Assessment/Plan 82 yo female POD#1 from Left CEA for Asymptomatic high-grade ICA stenosis. Clinicall progresing well...stable for discharge from a vascular surgical perspective. - f/u chika Gloria in 2 weeks in the [place] office - Resume all home meds including ASA, Plavix, Anti-hypertensives and statin. - She may continue to take Tylenol OTC for incisional pain. - She may resume a regular diet - No incisional dressings required. She may shower, No scrubbing/brushing/ soaking until healed. - Encourage daily walking and hydration. Problem List: 1. Left carotid artery stenosis 2. Carotid stenosis, right 3. CVA (cerebral vascular accident) Core Measures Venous Thromboembolism VTE Risk Factors Surgery No Mechanical VTE Prophylaxis d/t N/A MechProphylax Ordered No VTE Pharm Prophylaxis d/t NA PharmProphylax ordered
== END 2017-12-21 15:04 | DRG 38 ==
LOC: SDA 03:02 → CRI 03:02 → ENRESERV 10:49 → ENTRNSPT 11:23 → EDTRNSPT 11:28 → EDTRNSPTSTS 11:28 → CRI 11:50 → CMPTRNSPT 12:03 → ENTRNSPT 12-21 14:30 → EDTRNSPTSTS 12-21 14:37 → EDTRNSPT 12-21 14:37 → CMPTRNSPT 12-21 14:50 → CRI 12-21 15:04
PROVIDERS: Physician Assistant Surgical
PROC: 03UL0KZ Supplement Left Internal Carotid Artery with Nonautologous Tissue Substitute, Open Approach (ICD-10-PCS; principal; 2017-12-20)
PROC: 03CJ0ZZ Extirpation of Matter from Left Common Carotid Artery, Open Approach (ICD-10-PCS; principal; 2017-12-20)
PROC: 03CN0ZZ Extirpation of Matter from Left External Carotid Artery, Open Approach (ICD-10-PCS; principal; 2017-12-20)
PROC: 03CL0ZZ Extirpation of Matter from Left Internal Carotid Artery, Open Approach (ICD-10-PCS; principal; 2017-12-20)
DX: I65.22 Occlusion and stenosis of left carotid artery (principal); N18.4 Chronic kidney disease, stage 4 (severe); E78.5 Hyperlipidemia, unspecified; Z79.84 Long term (current) use of oral hypoglycemic drugs; I12.9 Hypertensive chronic kidney disease with stage 1 through stage 4 chronic kidney disease, or unspecified chronic kidney disease; E11.22 Type 2 diabetes mellitus with diabetic chronic kidney disease; G25.81 Restless legs syndrome; Z86.73 Personal history of transient ischemic attack (TIA), and cerebral infarction without residual deficits; Z79.01 Long term (current) use of anticoagulants
CPT/HCPCS: CCU; 36415; 82436; J0131; J0360; J0690; J1644; J2405; J2720; J3490; J7042